=== PATIENT | male | born 1995 | race Caucasian/White ===

== ENCOUNTER 2017-01-31 16:27 | Emergency (ER) | payer OTHER ==
[2017-01-31 16:29] VITALS: BP 135/72; PULSE 89; RESP 16; TEMP 98.4; O2SAT 99
--- NOTE | 2017-01-31 17:27 | PD ---
Physical Exam Time Seen by Provider: 17:25 Narrative 21-year-old male complaining of nose pain and concern of fracture after tripping and falling on the pool deck this morning. Abrasions noted to his forehead and bridge of nose. Denies epistaxis. Denies loss of consciousness. No raccoon eyes. Denies vomiting. Patient seen in triage. Vital signs reviewed. Patient awaiting bed placement. Data Data Last Documented VS Vital Signs Date Time Temp Pulse Resp B/P (MAP) Pulse Ox O2 Delivery O2 Flow Rate FiO2 01/31/17 16:29 98.4 89 16 135/72 (93) 99 MDM Supervised Visit with SUZETTE: Nida Damon Jan 31, 2017 17:27
--- NOTE | 2017-01-31 18:26 | RADRPT ---
EXAM DATE/TIME: 01/31/2017 17:50 [facility] COMPARISON: No previous studies available for comparison. INDICATIONS : Nose and forehead trauma from a fall. MEDICAL HISTORY : None. SURGICAL HISTORY : None. ENCOUNTER: Initial ACUITY: 1 day PAIN SCORE: 5/10 LOCATION: Nose FINDINGS: Lateral and [place] views of the nasal bones demonstrate a mildly depressed nasal bone fracture. Bony orbits appear intact. Sinuses are well aerated. CONCLUSION: Mildly depressed nasal bone fracture. Florencio Castellanos MD on January 31, 2017 at 18:23 Board Certified Radiologist. This report was verified electronically.
--- NOTE | 2017-01-31 18:49 | PD ---
HPI Chief Complaint: Head Injury Time Seen by Provider: 18:49 Travel History International Travel<30 days: No Contact w/Intl Traveler<30days: No Traveled to known affect area: No History of Present Illness HPI Patient's 21-year-old male whom several hours prior to my evaluation was walking beside the pool when he tripped and fell and landed on his face. The patient states that he's had some abrasions and he thinks he broke in his nose. Denies any loss of consciousness. He states he did have a beer very early this morning but he is fairly certain that side of his system altogether. Quite pleasant and clinically sober at this time. Endorses only some mild pain in his nonmidline neck. Denies any chest pain shortness breath abdominal pain loss of consciousness palpitations. Patient states the pain in his nose is fairly mild at this time. No radiation. Context as above, associated signs symptoms as above. PFSH Past Medical History Medical History: Denies Significant Hx Past Surgical History Surgical History: No Previous Surgery Social History Tobacco Use: No Allergies-Medications (Allergen,Severity, Reaction): Coded Allergies: No Known Allergies (Unverified , 01/31/17) Reported Meds & Prescriptions Reported Meds & Active Scripts Active Amoxicillin 500 Mg Cap 500 Mg PO BID 7 Days [place] Nasal [place] (Sodium Chloride) 0.65% [place] 2 [place] EACH NARE Q4HR PRN 7 Days Ultram (Tramadol HCl) 50 Mg Tab 50 Mg PO Q6H PRN Pseudoephedrine (Pseudoephedrine HCl) 60 Mg Tab 60 Mg PO Q6HR 7 Days Review of Systems Except as stated in HPI: all other systems reviewed are Neg Physical Exam Narrative GENERAL: Well-nourished, well-developed patient. SKIN: Focused skin assessment warm/dry. Some minor abrasions over the forehead in the midline as well as his over his nose, the dermis is intact. HEAD: Normocephalic. EYES: No scleral icterus. No injection or drainage. Extra ocular movements intact ENT: No swelling at the bridge of the nose, no septal hematoma, nose appears to be midline. Very little cosmetic effect. No bony tenderness of the maxilla, the frontal bone, the temporal bones. Oropharynx clear moist, TMs clear bilaterally. NECK: Supple, trachea midline. No JVD or lymphadenopathy. CARDIOVASCULAR: Regular rate and rhythm without murmurs, gallops, or rubs. RESPIRATORY: Breath sounds equal bilaterally. No accessory muscle use. GASTROINTESTINAL: Abdomen soft, non-tender, nondistended. MUSCULOSKELETAL: No cyanosis, or edema. No midline CT or L-spine tenderness. There is minimal tenderness over the trapezius muscles bilaterally. BACK: Nontender without obvious deformity. No CVA tenderness. Data Data Last Documented VS Vital Signs Date Time Temp Pulse Resp B/P (MAP) Pulse Ox O2 Delivery O2 Flow Rate FiO2 01/31/17 21:15 98.3 78 14 126/71 (89) 99 01/31/17 20:41 Room Air Orders Orders Nasal Bones (Min 3 Vws) (01/31/17 ) Ed Discharge Order (01/31/17 20:45) MDM Medical Decision Making Medical Screen Exam Complete: Yes Emergency Medical Condition: Yes Differential Diagnosis C-spine injury cleared by [facility] criteria, head injury cleared by [place] CT head rules, nasal bone fracture, abrasion, fall, closed head injury, concussion. Narrative Course Patient roomed emergency department, x-rays were obtained in the waiting room do show a minimally displaced nasal bone fracture. Cosmetically this care is very little effect. His nose is straight. Recommended ice, discussed other symptomatic management. Discussed return to ED criteria. He stable for discharge. Diagnosis Primary Impression: Nasal bone fracture Qualified Codes: S02.2XXA - Fracture of nasal bones, initial encounter for closed fracture Referrals: Juan Gonzalez DMD Med/Other Pt SpecificInfo: Prescription(s) given Scripts Amoxicillin (Amoxicillin) 500 Mg Cap 500 MG PO BID for Infection for 7 Days, #14 CAP 0 Refills Prov: Michael Viera MD 01/31/17 Sal[place] Nasal ([place] Nasal [place]) 0.65% [place] 2 SPRAY EACH NARE Q4HR Y for NASAL CONGESTION for 7 Days, #1 BOTTLE 0 Refills Prov: Michael Viera MD 01/31/17 Tramadol (Ultram) 50 Mg Tab 50 MG PO Q6H Y for PAIN, #15 TAB 0 Refills Prov: Michael Viera MD 01/31/17 Pseudoephedrine (Pseudoephedrine) 60 Mg Tab 60 MG PO Q6HR for Nasal Congestion for 7 Days, TAB 0 Refills Prov: Michael Viera MD 01/31/17 Disposition: 01 DISCHARGE HOME Condition: Stable Michael Viera MD Jan 31, 2017 18:49
[2017-01-31] MEDS ORDERED: OCEA0.653 EACH NARE (20:47)
[2017-01-31] MEDS ORDERED: SUDO60TA2 PO (20:47)
[2017-01-31] MEDS ORDERED: AMOX500C PO (20:47)
[2017-01-31] MEDS ORDERED: ULTR50TA5 PO (20:47)
[2017-01-31 21:15] VITALS: BP 126/71; TEMP 98.3
== END 2017-01-31 21:25 | disposition home or self-care (01) ==
LOC: NEPD 16:27
DX: S02.2XXA Fracture of nasal bones, initial encounter for closed fracture (principal); S00.81XA Abrasion of other part of head, initial encounter; M54.2 Cervicalgia; W01.0XXA Fall on same level from slipping, tripping and stumbling without subsequent striking against object, initial encounter; Y92.34 Swimming pool (public) as the place of occurrence of the external cause
CPT/HCPCS: 70160; 99284